=== PATIENT | female | born 1970 | race Caucasian/White ===

== ENCOUNTER → 2016-09-04 | Outpatient (CLI) | payer OTHER | LOC: CIMAGING 07:20 | DX: Z12.31 Encounter for screening mammogram for malignant neoplasm of breast (principal) | CPT/HCPCS: G0202 ==

== ENCOUNTER → 2017-09-06 | Outpatient (CLI) | payer OTHER | LOC: CIMAGING 07:17 | PROVIDERS: ATTEND Obstetrics & Gynecology | DX: Z12.31 Encounter for screening mammogram for malignant neoplasm of breast (principal) ==

== ENCOUNTER → 2018-09-19 | Outpatient (CLI) | payer OTHER | LOC: CIMAGING 07:02 | PROVIDERS: ATTEND Obstetrics & Gynecology | DX: Z12.31 Encounter for screening mammogram for malignant neoplasm of breast (principal) ==